=== PATIENT | female | born 1980 | race Caucasian/White ===

== ENCOUNTER 2021-02-26 17:37 | Emergency (ER) | payer SELFPAY ==
--- NOTE | 2021-02-26 17:52 | ED.NAVMDI ---
HPI - Nausea/Vomiting/Diarrhea General Chief complaint: Nausea/Vomiting/Diarrhea Stated complaint: Throwing UP Time Seen by Provider: 02/26/21 17:53 Source: patient and RN notes reviewed Mode of arrival: ambulatory Limitations: no limitations History of Present Illness HPI Narrative: 40-year-old female with a history of type 1 diabetes reports vomiting x2. States she woke up and her blood sugars were 400 did a sliding scale had vomited 1 time. Started feeling little bit better. Went to drink some Sprite and vomited again this afternoon. Denies any chest pain or abdominal pain. Sugars have come down to 249 while in clinic. Patient states pretty normal for her. Patient is not wanting to go to the ER currently here on her anniversary and visiting [place]. elicited complaint: nausea and vomiting Related Data Allergies Allergy/AdvReac Type Severity Reaction Status Date / Time aspirin Allergy Itching Verified 02/26/21 18:02 cephalexin [From Keflex] Allergy Nausea and Verified 02/26/21 18:01 Vomiting latex Allergy Itching Verified 02/26/21 18:02 Penicillins Allergy Unknown Verified 02/26/21 18:00 Review of Systems Review of Systems: All systems reviewed & are unremarkable except as noted in HPI and below Constitutional: Constitutional: Reports no additional constitutional complaints, Denies chills and Denies fever(s) Eyes: Eyes: Reports no additional eye complaints ENT: Reports system reviewed and no additional complaints, except as documented Cardiovascular: Cardiovascular: Reports no additional cardiovascular complaints, Denies chest pain and Denies dyspnea Respiratory: Respiratory: Reports no additional respiratory complaints, Denies cough, Denies dyspnea and Denies wheezing Gastrointestinal: Gastrointestinal: Reports as per HPI, Denies abdominal pain, Denies diarrhea, Reports nausea and Reports vomiting Musculoskeletal: Musculoskeletal: Reports no additional musculoskeletal complaints, Denies back pain, Denies myalgias and Denies muscle cramps Integumentary/Breasts: Skin/Breast: Reports system reviewed and no additional complaints, except as docu Neurologic: Reports system reviewed and no additional complaints, except as documented and Denies dizziness Psychiatric: Psychiatric: Reports no additional psychiatric complaints Allergic/Immunologic: Allergic/Immunologic: Reports no additional allergic/immunologic complaints and Denies wheezing PMFSH Past Medical History Medical History Type I diabetes mellitus Comments At the time of my signature, I reviewed and agree with the nursing past medical, surgical, social, and family history. There is no relevant family history pertinent to the patient complaint. Exam Const: General: healthy appearing, no acute distress and alert Nutritional Appearance: well nourished Orientation/consciousness: patient oriented x3 Limitations: no limitations HENMT: Head: normal to inspection Ears: external ears normal, TM's normal bilaterally and EAC's normal General nose exam: Normal external nose present and Normal nasal mucous membranes and turbinates present Mouth: Yes Normal oral and palatal mucosa present and Yes moist mucous membranes Throat: posterior oropharynx normal Eyes: Pupils: Equal, round and reactive pupils present Neck: Neck: normal visual inspection, no lymphadenopathy and no meningeal signs Chest: Chest palpation & inspection: normal inspection of the chest Resp: Effort & Inspection: normal respiratory effort and no use of accessory muscles Auscultation: clear to auscultation bilaterally, no crackles, no rales, no rhonchi and no wheezes Cardio: Rate: regular rate Rhythm: regular rhythm GI: GI Palp: Yes Soft to palpation and No Tenderness to palpation present (GI) : General: Yes no CVA tenderness Back/Spine/Pelvis: Back: no CVA tenderness Skin: General skin exam: normal color Rashes: no rashes Wo
[2021-02-26 17:56] LABS: Glucose Point of Care 249 mg/dl (65-105)
[2021-02-26 17:58] VITALS: BP 152/99; PULSE 118; RESP 19; TEMP 36.4; O2SAT 97
--- NOTE | 2021-02-26 18:19 | PC.NURSE ---
1800-- pts accucheck here is 249 mg/dl
== END 2021-02-26 18:04 | disposition home or self-care (01) ==
PROVIDERS: Emergency Provider Nurse Practitioner
DX: R11.2 Nausea with vomiting, unspecified (principal); E10.65 Type 1 diabetes mellitus with hyperglycemia
CPT/HCPCS: 82948; 99203; G0463